=== PATIENT | female | born 1940 | race Caucasian/White ===

== ENCOUNTER 2017-12-06 10:03 | Emergency (ER) | payer MEDICARE, OTHER ==
[~2017-12-06] VITALS: Ht 157.5 cm; Wt 62.1 kg
[2017-12-06 10:05] VITALS: BP 138/84
[2017-12-06] MEDS ORDERED: GLUCAGON 1 MG IVPush ONE (10:30)
[2017-12-06 10:53] LABS: BASOPHILS # (AUTO) 0.01 x10^3/uL (0-0.1); BASOPHILS % (AUTO) 0 % (0-1); EOSINOPHILS # (AUTO) 0.03 x10^3/uL (0-0.4); EOSINOPHILS % (AUTO) 1 % (1-7); LYMPHOCYTES # (AUTO) 1.41 x10^3/uL (1-3.4); LYMPHOCYTES % (AUTO) 20 % (22-44); MD NO; MEAN CORPUSCULAR HEMOGLOBIN 30.8 pg (27.0-34.8); MEAN CORPUSCULAR HGB CONC 33.7 g/dL (32.4-35.8); MEAN CORPUSCULAR VOLUME 91.4 fL (80-100); MEAN PLATELET VOLUME 8.4 fL (7.4-10.4); MONOCYTES % (AUTO) 6 % (2-9); NEUTROPHILS # (AUTO) 5.08 x10^3/uL (1.8-6.8); NEUTROPHILS % (AUTO) 73 % (42-75); PLATELET COUNT 218 x10^3/uL (130-400); RED BLOOD COUNT 4.67 x10^6/uL (3.82-5.3); RED CELL DISTRIBUTION WIDTH 13.9 % (9.6-15.2)
[2017-12-06 11:05] LABS: ALANINE AMINOTRANSFERASE 43 U/L (12-78); ALBUMIN 3.6 g/dL (3.4-5.0); ANION GAP 10 mmol/L (5-15); CALCIUM 9.1 mg/dL (8.5-10.1); CHLORIDE 109 mmol/L (98-107); CREATININE 0.98 mg/dL (0.55-1.02)
[2017-12-06 11:08] LABS: ALKALINE PHOSPHATASE 112 U/L (45-117); BILIRUBIN,TOTAL 0.9 mg/dL (0.2-1.0); TOTAL PROTEIN 7.4 g/dL (6.4-8.2)
[2017-12-06] MEDS ORDERED: GLUCAGON 1 MG ONE (11:19)
== END 2017-12-06 11:48 | disposition home or self-care (01) ==
LOC: ED 11:30
DX: K22.8 Other specified diseases of esophagus (principal); K44.9 Diaphragmatic hernia without obstruction or gangrene
CPT/HCPCS: 36415; 74220; 80053; 83690; 85025; 99285

== ENCOUNTER 2018-12-25 18:38 | Inpatient (IN) | payer MEDICARE, OTHER ==
[~2018-12-25] VITALS: Ht 154.9 cm; Wt 58.0 kg
--- NOTE | 2018-12-25 18:57 | NUR ---
FIRST CONTACT WITH PT. PT PRESENTS C/O LEFT FLANK PAIN RADIATING TO GROIN. STATES SHE WAS RECENTLY ON MACROBID FOR UTI BUT STOPPED THEM BECAUSE SHE WAS TOLD THE CULTURE WAS NEGATIVE. DENIES FEVER OR OTHER SX. PT IS AWAKE/ALERT AND AMBULATORY INTO THE ED. REPORTS DIZZINESS AND CONTINUED PAIN W/ URINATION. PT'S AOX4. RESPS EVEN AND UNLABORED. ALL MONITORS IN PLACE. CALL LIGHT WITHIN REACH. PA AT BEDSIDE TO EVALUATE.
--- NOTE | 2018-12-25 19:15 | NUR ---
PT STRAIGHT CATH'D USING STERILE TECHNIQUE. PT TOLERATED WELL. THIS RN WALKED TO LAB.
[2018-12-25] MEDS ORDERED: LIDODERM 5% PATCH TD ONE ×2 (19:19→19:30)
[2018-12-25] MEDS ORDERED: ACETAMINOPHEN 325 MG TABLET ONE (19:20)
[2018-12-25] MEDS ORDERED: MAALOX/HYOSCYAMINE/LIDOCAINE 45 ML BTL ONE (19:20)
--- NOTE | 2018-12-25 19:26 | NUR ---
PT MEDICATED PER EMAR. PT TOELRATED WELL.
[2018-12-25 19:30] LABS: BASOPHILS # (AUTO) 0.02 x10^3/uL (0-0.1); BASOPHILS % (AUTO) 0 % (0-1); EOSINOPHILS # (AUTO) 0.02 x10^3/uL (0-0.4); EOSINOPHILS % (AUTO) 1 % (1-7); LYMPHOCYTES % (AUTO) 21 % (22-44); MD NO; MEAN CORPUSCULAR HEMOGLOBIN 30.9 pg (27.0-34.8); MEAN CORPUSCULAR HGB CONC 32.8 g/dL (32.4-35.8); MEAN CORPUSCULAR VOLUME 94.2 fL (80-100); MEAN PLATELET VOLUME 7.6 fL (7.4-10.4); MONOCYTES # (AUTO) 0.48 x10^3/uL (0.2-0.8); MONOCYTES % (AUTO) 10 % (2-9); NEUTROPHILS # (AUTO) 3.21 x10^3/uL (1.8-6.8); NEUTROPHILS % (AUTO) 68 % (42-75); PLATELET COUNT 299 x10^3/uL (130-400); RED BLOOD COUNT 4.61 x10^6/uL (3.82-5.3); RED CELL DISTRIBUTION WIDTH 13.8 % (9.6-15.2)
[2018-12-25] MEDS ORDERED: MAALOX/HYOSCYAMINE/LIDOCAINE 45 ML BTL PO ONE (19:30)
[2018-12-25] MEDS ORDERED: ACETAMINOPHEN 325 MG TABLET PO ONE (19:30)
[2018-12-25 19:42] LABS: ALANINE AMINOTRANSFERASE 44 U/L (12-78); ALBUMIN 3.5 g/dL (3.4-5.0); ANION GAP 10 mmol/L (5-15); CALCIUM 8.9 mg/dL (8.5-10.1); CHLORIDE 91 mmol/L (98-107); CREATININE 0.64 mg/dL (0.55-1.02)
[2018-12-25 19:44] LABS: ALKALINE PHOSPHATASE 119 U/L (45-117); BILIRUBIN,TOTAL 0.9 mg/dL (0.2-1.0); TOTAL PROTEIN 6.8 g/dL (6.4-8.2)
[2018-12-25 20:16] LABS: MICROSCOPIC NOT IND
[2018-12-25 20:19] LABS: CULTURE INDICATED? NO
[2018-12-25 20:52] LABS: TROPONIN I < 0.015 ng/mL (0.000-0.045)
[2018-12-25] MEDS ORDERED: ARIP5TAB13 PO (21:28)
[2018-12-25] MEDS ORDERED: ATOR10TA PO (21:28)
[2018-12-25] MEDS ORDERED: DIAZ5TAB PO (21:29)
--- NOTE | 2018-12-25 21:43 | NUR ---
REPORT GIVEN TO DYLAN COSTELLO. ALL QUESTIONS ANSWERED.
[2018-12-25 22:36] VITALS: BP 128/78
[2018-12-25] MEDS ORDERED: DOCUSATE 100 MG CAPSULE PO PRN (23:00)
[2018-12-25] MEDS ORDERED: ONDANSETRON ODT 4 MG PO PRN (23:00)
[2018-12-25] MEDS ORDERED: GABAPENTIN 300 MG CAPSULE PO PRN (23:00)
[2018-12-25] MEDS ORDERED: ENALAPRILAT 1.25 MG/ML, 2ML IVPush PRN (23:00)
[2018-12-25] MEDS ORDERED: LIDODERM 5% PATCH TD PRN (23:00)
[2018-12-25] MEDS ORDERED: ACETAMINOPHEN 325 MG TABLET PO PRN (23:00)
[2018-12-25 23:24] LABS: POTASSIUM,URINE RANDOM 7 mmol/L; SODIUM,URINE RANDOM 19 mmol/L
[2018-12-25 23:26] LABS: CHLORIDE,URINE RANDOM < 10 mmol/L
[2018-12-25] MEDS: ARIPIPRAZOLE 5 MG TABLET PO SCH (23:26)
[2018-12-25] MEDS: ATORVASTATIN 10 MG TABLET PO SCH (23:26)
[2018-12-25] MEDS: DIAZEPAM 5 MG TABLET PO SCH (23:26)
[2018-12-25] MEDS: KETOROLAC 30 MG/1 ML IV PRN (23:26)
[2018-12-25] MEDS: ENOXAPARIN 40 MG/0.4 ML SQ SCH (23:38)
[2018-12-25] MEDS: D5%-0.45% NACL 1,000 ML IV SCH (23:38)
[2018-12-25 23:45] LABS: OSMOLALITY,URINE 77 mOsm/kg (500-850)
[2018-12-26 00:37] VITALS: BP 125/66
[2018-12-26 01:39] LABS: ANION GAP 9 mmol/L (5-15); CALCIUM 8.3 mg/dL (8.5-10.1); CHLORIDE 92 mmol/L (98-107); CREATININE 0.51 mg/dL (0.55-1.02)
[2018-12-26 01:42] LABS: TROPONIN I < 0.015 ng/mL (0.000-0.045)
[2018-12-26 07:08] VITALS: BP 135/72
[2018-12-26] MEDS: D5%-0.45% NACL 1,000 ML IV SCH ×3 (07:26→22:55)
[2018-12-26 07:53] LABS: ANION GAP 9 mmol/L (5-15); CALCIUM 8.2 mg/dL (8.5-10.1); CHLORIDE 93 mmol/L (98-107)
[2018-12-26 07:57] LABS: TROPONIN I < 0.015 ng/mL (0.000-0.045)
[2018-12-26 08:03] LABS: BASOPHILS # (AUTO) 0.01 x10^3/uL (0-0.1); BASOPHILS % (AUTO) 0 % (0-1); EOSINOPHILS # (AUTO) 0.03 x10^3/uL (0-0.4); EOSINOPHILS % (AUTO) 1 % (1-7); LYMPHOCYTES # (AUTO) 0.88 x10^3/uL (1-3.4); LYMPHOCYTES % (AUTO) 26 % (22-44); MD NO; MEAN CORPUSCULAR HEMOGLOBIN 30.6 pg (27.0-34.8); MEAN CORPUSCULAR HGB CONC 33.1 g/dL (32.4-35.8); MEAN CORPUSCULAR VOLUME 92.4 fL (80-100); MEAN PLATELET VOLUME 7.5 fL (7.4-10.4); MONOCYTES % (AUTO) 12 % (2-9); NEUTROPHILS # (AUTO) 2.12 x10^3/uL (1.8-6.8); NEUTROPHILS % (AUTO) 62 % (42-75); PLATELET COUNT 269 x10^3/uL (130-400); RED BLOOD COUNT 4.42 x10^6/uL (3.82-5.3); RED CELL DISTRIBUTION WIDTH 13.9 % (9.6-15.2)
[2018-12-26] MEDS: ARIPIPRAZOLE 5 MG TABLET PO SCH (10:02)
[2018-12-26] MEDS: DIAZEPAM 5 MG TABLET PO SCH (10:02)
[2018-12-26 13:19] VITALS: BP 115/70
[2018-12-26 19:00] LABS: SODIUM,URINE RANDOM 15 mmol/L
[2018-12-26 19:03] VITALS: BP_SYST 139; BP_SYST 150; BP_DIAS 78; BP_DIAS 87
[2018-12-26 19:09] LABS: OSMOLALITY,URINE 88 mOsm/kg (500-850)
[2018-12-26] MEDS: ATORVASTATIN 10 MG TABLET PO SCH (21:17)
[2018-12-26] MEDS: KETOROLAC 30 MG/1 ML IV PRN (21:17)
[2018-12-26] MEDS: ENOXAPARIN 40 MG/0.4 ML SQ SCH (22:55)
[2018-12-27 01:52] VITALS: BP 135/80
[2018-12-27 05:49] LABS: BASOPHILS # (AUTO) 0.01 x10^3/uL (0-0.1); BASOPHILS % (AUTO) 0 % (0-1); EOSINOPHILS # (AUTO) 0.04 x10^3/uL (0-0.4); EOSINOPHILS % (AUTO) 1 % (1-7); LYMPHOCYTES # (AUTO) 0.84 x10^3/uL (1-3.4); LYMPHOCYTES % (AUTO) 26 % (22-44); MD NO; MEAN CORPUSCULAR HEMOGLOBIN 31.3 pg (27.0-34.8); MEAN CORPUSCULAR HGB CONC 33.6 g/dL (32.4-35.8); MEAN CORPUSCULAR VOLUME 93.1 fL (80-100); MEAN PLATELET VOLUME 7.7 fL (7.4-10.4); MONOCYTES # (AUTO) 0.42 x10^3/uL (0.2-0.8); MONOCYTES % (AUTO) 13 % (2-9); NEUTROPHILS # (AUTO) 1.98 x10^3/uL (1.8-6.8); NEUTROPHILS % (AUTO) 60 % (42-75); PLATELET COUNT 260 x10^3/uL (130-400); RED BLOOD COUNT 4.09 x10^6/uL (3.82-5.3); RED CELL DISTRIBUTION WIDTH 13.6 % (9.6-15.2)
[2018-12-27 05:58] LABS: ANION GAP 6 mmol/L (5-15); CALCIUM 8.1 mg/dL (8.5-10.1); CHLORIDE 100 mmol/L (98-107)
[2018-12-27 05:59] LABS: CREATININE 0.62 mg/dL (0.55-1.02)
[2018-12-27] MEDS: D5%-0.45% NACL 1,000 ML IV SCH (07:11)
[2018-12-27 07:34] VITALS: BP 136/77
[2018-12-27] MEDS: DIAZEPAM 5 MG TABLET PO SCH (10:11)
[2018-12-27] MEDS: ARIPIPRAZOLE 5 MG TABLET PO SCH (10:11)
--- NOTE | 2018-12-27 11:53 | NUR ---
FRONT FACER REC: GROUND/THIN DIET NO MEAT Recommend ground/thin diet (no meats) with adherence to the following strategies: Up to chair for meals Remain upright for 45 minutes after eating Small bites/sips Alternate liquids and solids Meds floated in puree [place] swallow precautions sign posted in patient's room Addendum: 12/27/18 at 1153 by Ally OVALLES Amended: Links added.
[2018-12-27 14:26] VITALS: BP 149/73
[2018-12-27 19:19] VITALS: BP 154/75
[2018-12-27] MEDS: ENOXAPARIN 40 MG/0.4 ML SQ SCH (22:02)
[2018-12-27] MEDS: ATORVASTATIN 10 MG TABLET PO SCH (22:02)
[2018-12-28 01:11] VITALS: BP 132/68
[2018-12-28 05:07] LABS: BASOPHILS # (AUTO) 0.02 x10^3/uL (0-0.1); BASOPHILS % (AUTO) 1 % (0-1); EOSINOPHILS # (AUTO) 0.02 x10^3/uL (0-0.4); EOSINOPHILS % (AUTO) 1 % (1-7); LYMPHOCYTES % (AUTO) 24 % (22-44); MD NO; MEAN CORPUSCULAR HEMOGLOBIN 31.1 pg (27.0-34.8); MEAN CORPUSCULAR HGB CONC 33.1 g/dL (32.4-35.8); MEAN CORPUSCULAR VOLUME 93.9 fL (80-100); MEAN PLATELET VOLUME 7.7 fL (7.4-10.4); MONOCYTES % (AUTO) 12 % (2-9); NEUTROPHILS # (AUTO) 2.55 x10^3/uL (1.8-6.8); NEUTROPHILS % (AUTO) 62 % (42-75); PLATELET COUNT 278 x10^3/uL (130-400); RED BLOOD COUNT 4.45 x10^6/uL (3.82-5.3); RED CELL DISTRIBUTION WIDTH 14.2 % (9.6-15.2)
[2018-12-28 05:10] LABS: ANION GAP 6 mmol/L (5-15); CALCIUM 8.5 mg/dL (8.5-10.1); CHLORIDE 103 mmol/L (98-107)
[2018-12-28 07:45] VITALS: BP 147/77
[2018-12-28] MEDS: DIAZEPAM 5 MG TABLET PO SCH (08:00)
[2018-12-28] MEDS: ARIPIPRAZOLE 5 MG TABLET PO SCH (08:00)
== END 2018-12-28 11:05 | disposition home or self-care (01) | DRG 641 ==
LOC: ED 19:07 → EDIP 21:00 → 5SO 21:53 → DCLOUNGE 12-28 11:03
PROVIDERS: ADMIT Family Medicine; ATTEND Family Medicine
DX: E87.1 Hypo-osmolality and hyponatremia (principal); F20.9 Schizophrenia, unspecified; F45.9 Somatoform disorder, unspecified; K22.2 Esophageal obstruction; R63.1 Polydipsia; E78.5 Hyperlipidemia, unspecified; M54.32 Sciatica, left side; M54.31 Sciatica, right side; F41.1 Generalized anxiety disorder; K22.8 Other specified diseases of esophagus; K44.9 Diaphragmatic hernia without obstruction or gangrene; Z66 Do not resuscitate; M54.16 Radiculopathy, lumbar region; R13.10 Dysphagia, unspecified; Z83.3 Family history of diabetes mellitus; Z87.891 Personal history of nicotine dependence; Z96.653 Presence of artificial knee joint, bilateral
CPT/HCPCS: 36415; 71045; 80048; 80053; 81003; 82436; 83690; 83930; 83935; 84133; 84300; 84443; 84484; 85025; 93005; 96374; G0378; J1650; J1885